=== PATIENT | female | born 1990 | race Caucasian/White ===

== ENCOUNTER 2017-05-22 08:39 | Emergency (ER) | payer MEDICAID ==
[~2017-05-22] VITALS: Ht 149.9 cm; Wt 68.2 kg
[~2017-05-22 08:39] MED LIST: ALBU8.5H3 IH
[2017-05-22] MEDS ORDERED: KETOROLAC TROMETHAMINE 30 MG/ML VIAL IVP ONE (09:00)
[2017-05-22 09:26] LABS: BASOPHILS % (AUTO) 1.4 % (0.0-2.0); EOSINOPHILS % (AUTO) 5.8 % (1.0-6.0); HEMATOCRIT 38.8 % (36-46); HEMOGLOBIN 13.4 g/dL (12.0-16.0); LYMPHOCYTES # (AUTO) 1.7 K/uL (1.0-4.8); LYMPHOCYTES % (AUTO) 29.9 % (22.0-44.0); MEAN CORPUSCULAR HGB CONC 34.6 G/dL (31.0-37.0); MEAN CORPUSCULAR VOLUME 81 fL (80-100); MONOCYTES # (AUTO) 0.4 K/uL (0.1-1.0); MONOCYTES % (AUTO) 6.7 % (2.0-9.0); NEUTROPHILS # (AUTO) 3.2 K/uL (1.8-7.7); NEUTROPHILS % (AUTO) 56.2 % (40.0-70.0); PLATELET COUNT (AUTO) 313 K/uL (150-450); RED CELL DISTRIBUTION WIDTH 14.4 % (11.5-14.5); WHITE BLOOD COUNT (AUTO) 5.8 K/uL (4.5-11.0)
[2017-05-22 09:32] LABS: ANION GAP 12 mmol/L (8-16); CALCIUM, TOTAL 9.3 mg/dL (8.8-10.5); CARBON DIOXIDE 25 mmol/L (22-29); CHLORIDE 105 mmol/L (98-107); GLOMERULAR FILTR. RATE CALC > 60 mL/min (>60); POTASSIUM 4.4 mmol/L (3.5-5.1); SODIUM SERUM 142 mmol/L (136-145); UREA NITROGEN, BLOOD 10 mg/dL (7-18)
[2017-05-22 09:38] LABS: ALANINE AMINOTRANSFERASE 36 U/L (12-78); ALBUMIN 4.2 g/dL (3.4-5.0); ASPARTATE AMINOTRANSFERASE 24 U/L (15-37); BILIRUBIN,TOTAL 0.6 mg/dL (0.1-1.0)
[2017-05-22 09:50] LABS: APPEARANCE,URINE CLEAR (CLEAR); GLUCOSE, URINE (UA) NEGATIVE (NEGATIVE); KETONES,URINE NEGATIVE (NEGATIVE); LEUKOCYTE ESTERASE ,URINE NEGATIVE (NEGATIVE); PROTEIN,URINE NEGATIVE (NEGATIVE)
[2017-05-22 09:56] LABS: ADD UA MICROSCOPIC YES; OCCULT BLOOD,URINE TRACE (NEGATIVE); RBC,URINE 0-2 /HPF (0-2); SQUAMOUS EPITHELIAL CELL,UR Few /LPF (None Seen); WBC,URINE None Seen /HPF (0-5)
[2017-05-22 10:03] VITALS: BP 122/68
== END 2017-05-22 10:23 | disposition home or self-care (01) ==
LOC: EMS 08:41
DX: R10.32 Left lower quadrant pain (principal); J45.909 Unspecified asthma, uncomplicated; F17.210 Nicotine dependence, cigarettes, uncomplicated
CPT/HCPCS: 36415; 51701; 80053; 81001; 83690; 84703; 85025; 96374; 99284; J1885

== ENCOUNTER 2018-08-28 08:11 | Emergency (ER) | payer MEDICAID, OTHER ==
[~2018-08-28] VITALS: Ht 154.9 cm; Wt 68.2 kg
[2018-08-28] MEDS ORDERED: MACR100 PO (08:19)
[2018-08-28] MEDS ORDERED: CEFX1I IM (08:19)
[2018-08-28] MEDS ORDERED: [UNRECOGNIZED DRUG - OTHER] PO (08:19)
[2018-08-28 08:36] LABS: BILIRUBIN,URINE NEGATIVE (NEGATIVE); GLUCOSE, URINE (UA) NEGATIVE (NEGATIVE); KETONES,URINE NEGATIVE (NEGATIVE); NITRATE,URINE POSITIVE (NEGATIVE); OCCULT BLOOD,URINE TRACE (NEGATIVE); PROTEIN,URINE NEGATIVE (NEGATIVE); UROBILINOGEN,URINE 0.2 mg/dL (<=1.0)
[2018-08-28 08:44] LABS: LEUKOCYTE ESTERASE ,URINE MODERATE (NEGATIVE)
[2018-08-28 08:45] LABS: APPEARANCE,URINE SLIGHTLY CLOUDY (CLEAR); RBC,URINE 0-2 /HPF (0-2)
[2018-08-28 08:46] LABS: BACTERIA,URINE Few /HPF (None Seen); RENAL EPITHELIAL CELLS,URINE Rare /LPF (None Seen); SQUAMOUS EPITHELIAL CELL,UR Moderate /LPF (None Seen)
[2018-08-28 08:53] LABS: BASOPHILS % (AUTO) 1.2 % (0.0-2.0); EOSINOPHILS % (AUTO) 4.7 % (1.0-6.0); HEMATOCRIT 39.3 % (36-46); HEMOGLOBIN 13.4 g/dL (12.0-16.0); LYMPHOCYTES # (AUTO) 1.7 K/uL (1.0-4.8); LYMPHOCYTES % (AUTO) 24.9 % (22.0-44.0); MEAN CORPUSCULAR HEMOGLOBIN 28.1 pg (26.0-34.0); MEAN CORPUSCULAR VOLUME 83 fL (80-100); MONOCYTES # (AUTO) 0.4 K/uL (0.1-1.0); MONOCYTES % (AUTO) 5.6 % (2.0-9.0); NEUTROPHILS # (AUTO) 4.3 K/uL (1.8-7.7); NEUTROPHILS % (AUTO) 63.6 % (40.0-70.0); PLATELET COUNT (AUTO) 269 K/uL (150-450); RED BLOOD CELL COUNT(AUTO) 4.76 MIL/uL (4.00-5.20); RED CELL DISTRIBUTION WIDTH 14.3 % (11.5-14.5)
[2018-08-28] MEDS: SODIUM CHLORIDE 0.9% 1,000 ML IV ONE (08:56)
[2018-08-28 09:04] LABS: ANION GAP 4 mmol/L (8-16); CALCIUM, TOTAL 8.6 mg/dL (8.8-10.5); CARBON DIOXIDE 28 mmol/L (22-29); CHLORIDE 106 mmol/L (98-107); CREATININE 0.64 mg/dL (0.60-1.30); GLOMERULAR FILTR. RATE CALC > 60 mL/min (>60); GLUCOSE,RANDOM 101 mg/dL (70-110); POTASSIUM 3.6 mmol/L (3.5-5.1); SODIUM SERUM 138 mmol/L (136-145); UREA NITROGEN, BLOOD 7 mg/dL (7-18)
[2018-08-28 09:10] LABS: ALANINE AMINOTRANSFERASE 20 U/L (12-78); ALBUMIN 3.6 g/dL (3.4-5.0); ALKALINE PHOSPHATASE 62 U/L (46-116); ASPARTATE AMINOTRANSFERASE 14 U/L (15-37); BILIRUBIN,TOTAL 0.5 mg/dL (0.1-1.0); TOTAL PROTEIN, SERUM 7.3 g/dL (6.4-8.2)
[2018-08-28] MEDS: KETOROLAC TROMETHAMINE 30 MG/ML VIAL IVP ONE (09:24)
[2018-08-28] MEDS: CefTRIAXone SODIUM 1 GM in DEXTROSE 5%-WATER 10 ML IV ONE (09:58)
[2018-08-28 11:17] VITALS: BP 123/68
== END 2018-08-28 11:20 | disposition home or self-care (01) ==
LOC: EMS 08:12
DX: N12 Tubulo-interstitial nephritis, not specified as acute or chronic (principal); J45.909 Unspecified asthma, uncomplicated; F17.210 Nicotine dependence, cigarettes, uncomplicated
CPT/HCPCS: 36415; 80053; 81001; 84703; 85025; 87086; 96361; 96374; 96375; 99284; J0696; J1885; J7030; J7060

== ENCOUNTER 2018-11-27 08:11 | Emergency (ER) | payer OTHER ==
[~2018-11-27] VITALS: Ht 154.9 cm; Wt 77.3 kg
[~2018-11-27 08:11] MED LIST changes: +CEFX1I IM; +MACR100 PO; +[UNRECOGNIZED DRUG - OTHER] PO
[2018-11-27] MEDS ORDERED: TRAM50TA4 PO (08:21)
[2018-11-27] MEDS ORDERED: PHEN-846 PO (08:21)
[2018-11-27 09:28] VITALS: BP 136/88
[2018-11-27 09:35] LABS: APPEARANCE,URINE CLOUDY (CLEAR); BILIRUBIN,URINE NEGATIVE (NEGATIVE); GLUCOSE, URINE (UA) NEGATIVE (NEGATIVE); KETONES,URINE NEGATIVE (NEGATIVE); LEUKOCYTE ESTERASE ,URINE SMALL (NEGATIVE); NITRATE,URINE POSITIVE (NEGATIVE); OCCULT BLOOD,URINE LARGE (NEGATIVE); PH,URINE 5.5 (5.0-8.0); PROTEIN,URINE SEE CONFIRM (NEGATIVE); UROBILINOGEN,URINE 0.2 mg/dL (<=1.0)
[2018-11-27 09:47] LABS: BACTERIA,URINE Few /HPF (None Seen); SQUAMOUS EPITHELIAL CELL,UR Few /LPF (None Seen); SULFOSALICYLIC ACID,URINE 2+ (Negative); WBC,URINE 26-50 /HPF (0-5)
== END 2018-11-27 09:30 | disposition home or self-care (01) ==
LOC: EMS 08:12
DX: N39.0 Urinary tract infection, site not specified (principal); J45.909 Unspecified asthma, uncomplicated; F17.210 Nicotine dependence, cigarettes, uncomplicated; Z79.899 Other long term (current) drug therapy
CPT/HCPCS: 87086; 99406

== ENCOUNTER 2018-12-22 07:48 | Emergency (ER) | payer OTHER ==
[~2018-12-22] VITALS: Ht 154.9 cm; Wt 68.2 kg
[~2018-12-22 07:48] MED LIST changes: -ALBU8.5H3 IH; -CEFX1I IM; -MACR100 PO; +PHEN-846 PO; +TRAM50TA4 PO; -[UNRECOGNIZED DRUG - OTHER] PO
[2018-12-22] MEDS ORDERED: ONDANSETRON HCL 4 MG/2 ML VIAL IVP ONE (09:15)
[2018-12-22] MEDS ORDERED: SODIUM CHLORIDE 0.9% 1,000 ML IV ONE (09:15)
[2018-12-22 09:39] LABS: BASOPHILS % (AUTO) 0.3 % (0.0-2.0); EOSINOPHILS % (AUTO) 4.2 % (1.0-6.0); HEMATOCRIT 36.5 % (36-46); HEMOGLOBIN 12.1 g/dL (12.0-16.0); LYMPHOCYTES % (AUTO) 32.9 % (22.0-44.0); MEAN CORPUSCULAR HEMOGLOBIN 27.1 pg (26.0-34.0); MEAN CORPUSCULAR HGB CONC 33.1 G/dL (31.0-37.0); MEAN CORPUSCULAR VOLUME 82 fL (80-100); MONOCYTES # (AUTO) 0.4 K/uL (0.1-1.0); MONOCYTES % (AUTO) 6.6 % (2.0-9.0); NEUTROPHILS # (AUTO) 3.5 K/uL (1.8-7.7); PLATELET COUNT (AUTO) 263 K/uL (150-450); RED BLOOD CELL COUNT(AUTO) 4.45 MIL/uL (4.00-5.20); RED CELL DISTRIBUTION WIDTH 14.3 % (11.5-14.5)
[2018-12-22 09:45] LABS: ANION GAP 9 mmol/L (8-16); CALCIUM, TOTAL 8.8 mg/dL (8.8-10.5); CARBON DIOXIDE 28 mmol/L (22-29); CHLORIDE 103 mmol/L (98-107); CREATININE 0.61 mg/dL (0.60-1.30); GLOMERULAR FILTR. RATE CALC > 60 mL/min (>60); GLUCOSE,RANDOM 88 mg/dL (70-110); POTASSIUM 4.1 mmol/L (3.5-5.1); SODIUM SERUM 140 mmol/L (136-145); UREA NITROGEN, BLOOD 10 mg/dL (7-18)
[2018-12-22 09:47] LABS: APPEARANCE,URINE CLOUDY (CLEAR); BILIRUBIN,URINE NEGATIVE (NEGATIVE); GLUCOSE, URINE (UA) NEGATIVE (NEGATIVE); KETONES,URINE NEGATIVE (NEGATIVE); LEUKOCYTE ESTERASE ,URINE SMALL (NEGATIVE); NITRATE,URINE POSITIVE (NEGATIVE); OCCULT BLOOD,URINE MODERATE (NEGATIVE); PH,URINE 6.5 (5.0-8.0); PROTEIN,URINE POS 1+ (NEGATIVE)
[2018-12-22 10:04] LABS: BACTERIA,URINE Few /HPF (None Seen); RBC,URINE 0-2 /HPF (0-2); SQUAMOUS EPITHELIAL CELL,UR Few /LPF (None Seen)
[2018-12-22] MEDS ORDERED: PHENAZOPYRIDINE HCL 100 MG TABLET PO ONE (10:45)
[2018-12-22 10:52] VITALS: BP 116/81
== END 2018-12-22 11:35 | disposition home or self-care (01) ==
LOC: EMS 07:48
DX: N39.0 Urinary tract infection, site not specified (principal); F17.210 Nicotine dependence, cigarettes, uncomplicated; Z79.899 Other long term (current) drug therapy
CPT/HCPCS: 36415; 80048; 81001; 84703; 85025; 87086; 96374; 99283; J2405; J7030

== ENCOUNTER 2019-01-30 18:33 | Emergency (ER) | payer OTHER ==
[~2019-01-30] VITALS: Ht 154.9 cm; Wt 68.2 kg
[2019-01-30 18:38] VITALS: BP 125/82
== END 2019-01-30 19:53 | disposition left against medical advice (07) ==
LOC: EMS 18:35
DX: R21 Rash and other nonspecific skin eruption (principal); Z53.21 Procedure and treatment not carried out due to patient leaving prior to being seen by health care provider

== ENCOUNTER 2019-02-18 08:25 | Emergency (ER) | payer OTHER ==
[~2019-02-18] VITALS: Ht 154.9 cm; Wt 68.2 kg
[~2019-02-18 08:25] MED LIST changes: -PHEN-846 PO
[2019-02-18] MEDS ORDERED: ALBU8HFA IH (08:49)
[2019-02-18] MEDS ORDERED: PredniSONE 20 MG TABLET PO ONE (10:00)
[2019-02-18] MEDS ORDERED: GuaiFENesin/D-METHORPHAN [SUGAR-FREE] 200-20MG/10 ML SYRUP UDCUP PO ONE (10:00)
[2019-02-18] MEDS ORDERED: ACETAMINOPHEN/CODEINE 300-30 MG TABLET PO ONE (10:00)
[2019-02-18 10:57] VITALS: BP 105/68
== END 2019-02-18 11:28 | disposition home or self-care (01) ==
LOC: EMS 08:27
DX: J40 Bronchitis, not specified as acute or chronic (principal); J06.9 Acute upper respiratory infection, unspecified; F17.210 Nicotine dependence, cigarettes, uncomplicated; Z79.899 Other long term (current) drug therapy
CPT/HCPCS: 71045; 99284; J7512

== ENCOUNTER 2019-05-26 08:35 | Emergency (ER) | payer OTHER ==
[~2019-05-26] VITALS: Ht 154.9 cm; Wt 70.5 kg
[~2019-05-26 08:35] MED LIST changes: +ALBU8HFA IH; -TRAM50TA4 PO
[2019-05-26] MEDS ORDERED: SODIUM CHLORIDE 0.9% 1,000 ML IV ONE (10:30)
[2019-05-26] MEDS ORDERED: ONDANSETRON HCL 4 MG/2 ML VIAL IVP ONE (10:30)
[2019-05-26] MEDS ORDERED: MORPHINE SULFATE 4 MG/ML SYRINGE IVP ONE (10:30)
[2019-05-26 10:38] LABS: BASOPHILS % (AUTO) 1.3 % (0.0-2.0); EOSINOPHILS % (AUTO) 4.7 % (1.0-6.0); HEMATOCRIT 42.9 % (36-46); LYMPHOCYTES # (AUTO) 1.8 K/uL (1.0-4.8); LYMPHOCYTES % (AUTO) 36.4 % (22.0-44.0); MEAN CORPUSCULAR HEMOGLOBIN 27.3 pg (26.0-34.0); MEAN CORPUSCULAR HGB CONC 32.6 G/dL (31.0-37.0); MEAN CORPUSCULAR VOLUME 84 fL (80-100); MONOCYTES # (AUTO) 0.3 K/uL (0.1-1.0); MONOCYTES % (AUTO) 6.6 % (2.0-9.0); NEUTROPHILS # (AUTO) 2.5 K/uL (1.8-7.7); PLATELET COUNT (AUTO) 283 K/uL (150-450); RED BLOOD CELL COUNT(AUTO) 5.13 MIL/uL (4.00-5.20); RED CELL DISTRIBUTION WIDTH 14.7 % (11.5-14.5)
[2019-05-26 10:42] LABS: APPEARANCE,URINE CLEAR (CLEAR); BILIRUBIN,URINE NEGATIVE (NEGATIVE); GLUCOSE, URINE (UA) NEGATIVE (NEGATIVE); KETONES,URINE NEGATIVE (NEGATIVE); LEUKOCYTE ESTERASE ,URINE NEGATIVE (NEGATIVE); NITRATE,URINE NEGATIVE (NEGATIVE); OCCULT BLOOD,URINE NEGATIVE (NEGATIVE); PROTEIN,URINE NEGATIVE (NEGATIVE); UROBILINOGEN,URINE 0.2 mg/dL (<=1.0)
[2019-05-26 10:52] LABS: BACTERIA,URINE None Seen /HPF (None Seen); RBC,URINE None Seen /HPF (0-2); WBC,URINE None Seen /HPF (0-5)
[2019-05-26 10:58] LABS: ANION GAP 10 mmol/L (8-16); CALCIUM, TOTAL 9.7 mg/dL (8.8-10.5); CARBON DIOXIDE 28 mmol/L (22-29); CHLORIDE 100 mmol/L (98-107); CREATININE 0.66 mg/dL (0.60-1.30); GLOMERULAR FILTR. RATE CALC > 60 mL/min (>60); GLUCOSE,RANDOM 90 mg/dL (70-110); POTASSIUM 3.9 mmol/L (3.5-5.1); SODIUM SERUM 138 mmol/L (136-145); UREA NITROGEN, BLOOD 9 mg/dL (7-18)
[2019-05-26 11:05] LABS: ALANINE AMINOTRANSFERASE 23 U/L (12-78); ALKALINE PHOSPHATASE 60 U/L (46-116); ASPARTATE AMINOTRANSFERASE 17 U/L (15-37); BILIRUBIN,TOTAL 0.8 mg/dL (0.1-1.0); LIPASE 161 U/L (73-393); TOTAL PROTEIN, SERUM 7.8 g/dL (6.4-8.2)
[2019-05-26] MEDS ORDERED: KETOROLAC TROMETHAMINE 30 MG/ML VIAL IVP ONE (11:30)
[2019-05-26 11:55] VITALS: BP 121/72
== END 2019-05-26 12:06 | disposition home or self-care (01) ==
LOC: EMS 08:36
DX: G43.909 Migraine, unspecified, not intractable, without status migrainosus (principal); R10.11 Right upper quadrant pain; J45.909 Unspecified asthma, uncomplicated; F17.210 Nicotine dependence, cigarettes, uncomplicated; Z79.899 Other long term (current) drug therapy
CPT/HCPCS: 36415; 76700; 80053; 81001; 83690; 84703; 85025; 96374; 96375; 99284; J1885; J2270; J2405; J7030

== ENCOUNTER 2022-09-05 05:22 | Emergency (ER) | payer OTHER ==
[~2022-09-05] VITALS: Ht 154.9 cm; Wt 71.0 kg
[2022-09-05 06:28] LABS: APPEARANCE,URINE HAZY (CLEAR); BILIRUBIN,URINE NEGATIVE (NEGATIVE); GLUCOSE, URINE (UA) NEGATIVE (NEGATIVE); KETONES,URINE NEGATIVE (NEGATIVE); LEUKOCYTE ESTERASE ,URINE LARGE (NEGATIVE); NITRATE,URINE POSITIVE (NEGATIVE); OCCULT BLOOD,URINE TRACE (NEGATIVE); PROTEIN,URINE TRACE mg/dL (NEGATIVE); SPECIFIC GRAVITIY, URINE 1.016 (1.003-1.030); UROBILINOGEN,URINE <=1.0 mg/dL (<=1.0)
[2022-09-05 07:00] VITALS: BP 127/81
[2022-09-05] MEDS ORDERED: PHEN-674 PO (07:01)
[2022-09-05] MEDS ORDERED: NITR-75 PO (07:01)
[2022-09-05 07:15] LABS: BACTERIA,URINE Many /HPF (None Seen); SQUAMOUS EPITHELIAL CELL,UR Few /LPF (None Seen)
[2022-09-05 07:16] LABS: RBC,URINE 0-2 /HPF (0-2)
[2022-09-05 07:17] LABS: WBC,URINE Full Field /HPF (0-5)
== END 2022-09-05 07:07 | disposition home or self-care (01) ==
LOC: EMS 05:23
DX: N39.0 Urinary tract infection, site not specified (principal); J45.909 Unspecified asthma, uncomplicated; F17.210 Nicotine dependence, cigarettes, uncomplicated; Z98.890 Other specified postprocedural states
CPT/HCPCS: 81001; 84703; 87086; 99283

== ENCOUNTER 2023-01-14 04:41 | Emergency (ER) | payer OTHER ==
[~2023-01-14] VITALS: Ht 152.4 cm; Wt 70.9 kg
[~2023-01-14 04:41] MED LIST changes: +NITR-75 PO; +PHEN-674 PO
[2023-01-14] MEDS ORDERED: KETOROLAC TROMETHAMINE 30 MG/ML VIAL IM ONE (07:30)
[2023-01-14] MEDS ORDERED: LIDOCAINE 5% TRANSDERMAL PATCH TD ONE (07:30)
[2023-01-14] MEDS ORDERED: ACETAMINOPHEN 325 MG TABLET PO ONE (07:30)
[2023-01-14 10:05] VITALS: BP 135/72
== END 2023-01-14 10:37 | disposition home or self-care (01) ==
LOC: EMS 04:43
DX: M25.572 Pain in left ankle and joints of left foot (principal); M25.552 Pain in left hip; M25.511 Pain in right shoulder; J45.909 Unspecified asthma, uncomplicated; F17.210 Nicotine dependence, cigarettes, uncomplicated; Z98.890 Other specified postprocedural states
CPT/HCPCS: 99283; 73030; 73502; 73610; 73630; 96372; J1885